=== PATIENT | female | born 1960 | race Caucasian/White ===

== ENCOUNTER → 2020-09-21 10:02 | Outpatient (CLI) | payer OTHER, SELFPAY ==
[2020-09-21 10:50] LABS: COVID19 -Nasal RAPID Negative (Negative)
== END ==
PROVIDERS: Family Provider Physician Assistant; PCP Physician Assistant; Referring Provider Internal Medicine; Visit Provider Internal Medicine
DX: Z20.822 Contact with and (suspected) exposure to COVID-19 (principal)
CPT/HCPCS: 87635; C9803

== ENCOUNTER → 2020-09-29 10:13 | Outpatient (CLI) | payer OTHER, SELFPAY ==
[2020-09-29 11:09] LABS: COVID19 -Nasal RAPID Negative (Negative)
== END ==
PROVIDERS: Family Provider Physician Assistant; Referring Provider Internal Medicine; Visit Provider Internal Medicine
DX: Z20.822 Contact with and (suspected) exposure to COVID-19 (principal)
CPT/HCPCS: 87635; C9803

== ENCOUNTER → 2020-09-30 11:00 | Outpatient (CLI) | payer BC, SELFPAY ==
--- NOTE | 2020-10-07 08:10 | PM.PFT.1 ---
Pulmonary Function Test Referral & Results Date Patient Seen: 09/30/20 Requesting provider: Francisco J Vazquez Indication: Massive right lung Results: The spirometry demonstrates an FVC of 2.8 L which is 93% of predicted. The FEV1 was measured at 2.34 L which is 97% of predicted. The FEV1/FVC ratio was 81 which is 103% of predicted. Following the administration of bronchodilator there was no appreciable change. Lung volumes show an SVC of 2.72 L which is 94% of predicted. The diffusing capacity was measured at 22.09 which is 102% of predicted. The maximum voluntary ventilation was minimally reduced Interpretation: This study demonstrates normal pulmonary function.
== END ==
PROVIDERS: Family Provider Physician Assistant; Referring Provider Surgery; Visit Provider Surgery
DX: R91.8 Other nonspecific abnormal finding of lung field (principal); D49.89 Neoplasm of unspecified behavior of other specified sites
CPT/HCPCS: 94060; 94726; 94729